=== PATIENT | female | born 1950 | race Caucasian/White ===

== ENCOUNTER 2024-04-03 13:34 | Emergency (ER) | payer MEDICARE, OTHER ==
[2024-04-03 14:07] LABS: BASOPHILS % (AUTO) 0.3 %; EOSINOPHILS # (AUTO) 0.1 10^3/uL (0.0-0.7); EOSINOPHILS % (AUTO) 0.6 %; HCT - HEMATOCRIT 41.3 % (37.0-47.0); HGB - HEMOGLOBIN 13.6 g/dL (12.0-16.0); LYMPHOCYTES # (AUTO) 1.7 10^3/uL (1.5-3.5); LYMPHOCYTES % (AUTO) 18.6 %; MEAN CORPUSCULAR HEMOGLOBIN 30.8 pg (27.0-31.0); MEAN CORPUSCULAR HGB CONC 32.9 g/dL (32.0-36.0); MEAN CORPUSCULAR VOLUME 93.4 fL (81.0-99.0); MEAN PLATELET VOLUME 9.9 fL (7.9-10.8); MONOCYTES # (AUTO) 0.7 10^3/uL (0.0-1.0); MONOCYTES % (AUTO) 8.2 %; NEUTROPHILS # (AUTO) 6.4 10^3/uL (1.5-6.6); NEUTROPHILS % (AUTO) 72.1 %; PLT - PLATELET COUNT 260 10^3/uL (130-450); RED BLOOD COUNT 4.42 10^6/uL (4.20-5.40); RED CELL DISTRIBUTION WIDTH 12.1 % (12.0-15.0); WHITE BLOOD COUNT 8.9 x10^3/uL (4.8-10.8)
[2024-04-03 14:21] LABS: ALBUMIN 4.5 g/dL (3.2-5.5); ALBUMIN/GLOBULIN RATIO 1.5 (1.0-2.2); BILIRUBIN,TOTAL 0.4 mg/dL (0.2-1.0); CALCIUM 9.9 mg/dL (8.5-10.3); CREATININE 0.8 mg/dL (0.6-1.3); POTASSIUM 3.6 mmol/L (3.5-4.5); TOTAL PROTEIN 7.6 g/dL (6.4-8.9)
--- NOTE | 2024-04-03 14:27 | ED Physician Documentation ---
History of Present Illness - Stated complaint Stated Complaint: ONESIMO SAAVEDRA, SENT BY PCP - Chief complaint Chief Complaint: General - Additonal information Additional information: 73-year-old female with history of hypertension, hypercholesterolemia, diverticulosis, hypothyroidism, diverticulitis presents emergency department for generalized abdominal pain and discomfort. Patient says she attempted to get in with her primary care provider for further evaluation of this abdominal pain but they advised her to come into the emergency department for further evaluation. Patient says this feels very similar to previous episodes of diverticulitis. She has had recent chills unsure if any recent fevers with mild nausea no vomiting. She also reports that she was recently at her sister's house eating more nuts and grains than she normally does and did notice increased abdominal pain after this. PD PAST MEDICAL HISTORY - Past Medical History Past Medical History: Yes Cardiovascular: Hypertension, High cholesterol Respiratory: None Neuro: None Endocrine/Autoimmune: HyPOthyroidism GI: None [employer]: None : None HEENT: None Psych: None Musculoskeletal: None Derm: None - Present Medications Home Medications: Ambulatory Orders Medication Instructions Recorded Confirmed Amox/Clav 875/125 [Augmentin 1 tablet PO Q12H 7 Days #14 tablet 04/03/24 875/125 Tab] Atorvastatin [Lipitor] 10 mg PO DAILY 04/03/24 04/03/24 Levothyroxine [Synthroid] 125 mcg PO DAILY 04/03/24 04/03/24 Losartan [Cozaar] 25 mg PO DAILY 04/03/24 04/03/24 hydroCHLOROthiazide [Hydrodiuril] 12.5 mg PO DAILY 04/03/24 04/03/24 - Allergies Allergies/Adverse Reactions: Allergies Allergy/AdvReac Type Severity Reaction Status Date / Time No Known Drug Allergies Allergy Verified 04/03/24 13:50 - Social History Does the pt smoke?: No Smoking Status: Never smoker Does the pt drink ETOH?: No Does the pt have substance abuse?: No - Immunizations Immunizations are current?: Yes - POLST Patient has POLST: No PD ED PE NORMAL - Vitals Vital signs reviewed: Yes - General General: Alert and oriented X 3, No acute distress, Well developed/nourished - Cardiac Cardiac: RRR - Respiratory Respiratory: No respiratory distress - Abdomen Abdomen: Normal bowel sounds, Soft, Non distended, No organomegaly. No: Non tender (Generalized abdominal tenderness no guarding) - Back Back: No CVA TTP - Derm Derm: Normal color, Warm and dry, No rash Results - Vitals Vitals: Vital Signs - 24 hr 04/03/24 04/03/24 04/03/24 13:42 16:25 18:06 Temperature 37.0 C 36.5 C Heart Rate 92 97 81 Respiratory 17 16 20 Rate Blood Pressure 166/89 H 161/89 H 154/88 H O2 Saturation 99 100 100 Oxygen O2 Source Room air - Labs Labs: Laboratory Tests 04/03/24 04/03/24 04/03/24 14:00 14:00 14:00 WBC 8.9 RBC 4.42 Hgb 13.6 Hct 41.3 MCV 93.4 MCH 30.8 MCHC 32.9 RDW 12.1 Plt Count 260 MPV 9.9 Neut # (Auto) 6.4 Lymph # (Auto) 1.7 [place] # (Auto) 0.7 Eos # (Auto) 0.1 Baso # (Auto) 0.0 Absolute Nucleated RBC 0.00 Nucleated RBC % 0.0 Sodium 134 L Potassium 3.6 Chloride 98 L Carbon Dioxide 28 Anion Gap 8.0 BUN 11 Creatinine 0.8 Estimated GFR (MDRD) 71 L Glucose 126 H Calcium 9.9 Total Bilirubin 0.4 AST 19 ALT 14 Alkaline Phosphatase 70 Total Protein 7.6 Albumin 4.5 Globulin 3.1 Albumin/Globulin Ratio 1.5 Lipase 11 Urine Color YELLOW Urine Clarity CLEAR Urine pH 6.0 Ur Specific [place] 1.015 Urine Protein NEGATIVE Urine Glucose (UA) NEGATIVE Urine Ketones NEGATIVE Urine Occult Blood SMALL H Urine Nitrite NEGATIVE Urine Bilirubin NEGATIVE Urine Urobilinogen 0.2 (NORMAL) Ur Leukocyte Esterase NEGATIVE Urine RBC 0-5 Urine WBC 0-3 Ur Squamous Epith Cells FEW Squamous Urine Bacteria Rare Ur Microscopic Review INDICATED Urine Culture Comments NOT INDICATED - Rads (name of study) CT abdomen pelvis with contrast Relevant Findings:: Final report received, EMP independent interpretation of test, Other (Sigmoid colonic thickening with inflammatory changes most consistent with colitis secondary to diverticulitis no abscess or perforation.) PD Medical Decision Making - ED course ED course: 73-year-old female presents emergency department for abdominal pain differentials included but are not limited to due to, pyelonephritis, UTI, atypical appendicitis, diverticulitis. Patient is not guarding no signs of peritonitis. Labs have been complete for further evaluation and reveal no anemia no leukocytosis no significant electrolyte abnormalities normal kidney function. Urinalysis was complete as well for further evaluation as no leukocytes or nitrites no other obvious signs of infection urinalysis. CT abdomen pelvis was also complete for further evaluation and it appears that She has sigmoid colonic thickening with inflammatory changes most consistent with colitis secondary to diverticulitis. She was started on Augmentin here in the emergency department and a prescription of Augmentin was sent to her preferred pharmacy. She was told if she is able to tolerate clear liquid diet for the next couple days to try to do this and very slowly ease back into eating a very bland diet and to stick to her diverticulosis diet. Patient given return precautions and to follow-up with primary care provider as soon as possible all questions answered safe for discharge. Departure - Departure Disposition: 01 Home, Self Care Clinical Impression: Diverticulitis Instructions: Diverticulosis Diverticulitis, Diverticulitis Dc Prescriptions: Amox/Clav 875/125 [Augmentin 875/125 Tab] 1 tablet PO Q12H 7 Days #14 tablet Comments: Thank you for trusting us with your care. We have found that you have diverticulitis. I am starting you on an antibiotic called Augmentin you will take this twice a day for the next 7 days. Please follow-up with your primary care provider if after 7 days your symptoms have not resolved or gotten any better. I would also strongly encourage you to fast for 24 to 48 hours and stick with a clear liquid diet only. When you start eating again make sure that you are sticking to your diverticulitis diet and start with a very bland diet such as bananas, toast, rice when reintroducing food. Please come back to the e mergency department if you are experiencing any worsening symptoms, fevers chills, nausea vomiting or any other concerning symptoms. Wishing a speedy recovery. Forms: PCP List Discharge Date/Time: 04/03/24 18:06
[2024-04-03 15:09] LABS: BILIRUBIN,URINE NEGATIVE (NEGATIVE); GLUCOSE, URINE (UA) NEGATIVE (NEGATIVE); KETONES,URINE (UA) NEGATIVE (NEGATIVE); LEUKOCYTE ESTERASE, URINE NEGATIVE (NEGATIVE); NITRITE,URINE NEGATIVE (NEGATIVE); OCCULT BLOOD,URINE SMALL (NEGATIVE); PROTEIN,URINE NEGATIVE (NEGATIVE); UROBILINOGEN,URINE 0.2 (NORMAL) E.U./dL (NORMAL)
[2024-04-03 15:11] LABS: CLARITY,URINE CLEAR (CLEAR)
[2024-04-03 15:16] LABS: BACTERIA,URINE Rare /HPF (None Seen); RBC,URINE 0-5 /HPF (0-5); SQUAMOUS EPITHELIAL CELL,UR FEW Squamous (<= Few); WBC,URINE 0-3 /HPF (0-5)
[2024-04-03] MEDS ORDERED: iohexoL-300 100 ML VIAL ONE (16:01)
[2024-04-03 16:31] VITALS: O2SAT 100
[2024-04-03] MEDS: iohexoL-300 100 ML VIAL IVP ONE (16:57)
--- NOTE | 2024-04-03 17:18 | CT Report ---
PROCEDURE: Abdomen/Pelvis W INDICATIONS: hx of diverticulitis, generalized abd pain CONTRAST: Omni 300 100ml TECHNIQUE: After the administration of intravenous contrast, a CT scan of the abdomen and pelvis was performed. Images were recorded and evaluated at appropriate window settings. Reformats: coronal and sagittal. F or radiation dose reduction, the following was used: automated exposure control, adjustment of mA and /or kV according to patient size. COMPARISON: None. FINDINGS: Image quality: Diagnostic. Lower chest: Unremarkable. Liver: No solid mass. Gallbladder: Unremarkable. Biliary tree: No intrahepatic or extrahepatic dilation, accounting for age. Spleen: No splenomegaly. Pancreas: No pancreatic ductal dilation. Adrenals: No adrenal nodule. Kidneys and ureters: No hydronephrosis. No renal cystic lesion which requires follow up. No solid mas s. Stomach, bowel and peritoneum: No gastric or small bowel dilation. No abnormal wall thickening. No pa thologic free fluid. Extensive colonic diverticular present. There is mild thickening and inflammator y change within the sigmoid colon. No abscess. No free air. Lymph nodes: No central or retroperitoneal adenopathy. Vessels: No infrarenal aortic aneurysm. Patent portal vein. PELVIS Reproductive organs: Unremarkable. Bladder: No abnormal wall thickening, accounting for underdistention. Pelvic lymph nodes: No pelvic adenopathy by size criteria. Bones: No aggressive osseous abnormality. Other: No significant ventral or inguinal hernia. IMPRESSION: Sigmoid colonic thickening with inflammatory change most consistent with colitis secondary to diverti culitis. No abscess. No perforation. Reviewed by: Rianna Li MD on 04/03/2024 5:17 PM PDT Approved by: Rianna Li MD on 04/03/2024 5:17 PM PDT Station ID: [id number]
[2024-04-03] MEDS: AMOX/CLAV 875 MG/125 MG TABLET PO STA (17:59)
[2024-04-03] MEDS: SODIUM CHLORIDE 0.9% 1,000 ML IV ONE (17:59)
[2024-04-03 18:13] VITALS: BP 154/88
== END 2024-04-03 18:06 | disposition home or self-care (01) ==
LOC: ED 13:34
DX: K57.32 Diverticulitis of large intestine without perforation or abscess without bleeding (principal); I10 Essential (primary) hypertension; E78.00 Pure hypercholesterolemia, unspecified; E03.9 Hypothyroidism, unspecified; Z79.899 Other long term (current) drug therapy
CPT/HCPCS: 36415; 74177; 80053; 81001; 83690; 85025; 99284; A9270; Q9967; 81003; 87086

== ENCOUNTER 2024-06-24 12:23 | Outpatient (CLI) | payer MEDICARE, OTHER ==
[2024-06-24 13:46] LABS: THYROID STIMULATING HORMONE 0.89 uIU/mL (0.34-5.60)
== END 2024-06-24 12:24 | disposition home or self-care (01) ==
LOC: LAB 12:23
PROVIDERS: ATTEND Internal Medicine
DX: E03.9 Hypothyroidism, unspecified (principal)
CPT/HCPCS: 36415; 84439; 84443